=== PATIENT | male | born 1945 | race Caucasian/White ===

== ENCOUNTER 2017-09-17 21:05 | Inpatient (IN) | payer MEDICARE ==
--- NOTE | 2017-09-17 21:28 | ED ---
Chest Pain HPI - General Stated Complaint: Chest Pain Time Seen by Provider: 09/17/17 21:09 - History of Present Illness Initial Comments: 71 years old male had a stress test on recently and according to him it was positive and he was today sitting at the computer and all of a sudden he got short winded him down got tachycardic he noticed palpitation he said his heart was pounding and he noticed some tingling in his arms he denies any weakness of the arms or the forearms and hands and denies any weakness rate No sinus symptoms of TIA or CVA at this point - Related Data Home Medications Medication Instructions Recorded Confirmed ALPRAZolam [Xanax] 0.25 mg PO BID 09/17/17 09/17/17 Aspirin EC [Ecotrin Low Dose] 81 mg PO DIRECTED 09/17/17 09/17/17 Benazepril HCl 10 mg PO DAILY 09/17/17 09/17/17 Celecoxib [CeleBREX] 200 mg PO DIRECTED 09/17/17 09/17/17 Cholecalciferol [Vitamin D3] 2,000 unit PO DAILY 09/17/17 09/17/17 Cyanocobalamin [Vitamin B-12] 500 mcg PO DAILY 09/17/17 09/17/17 Docusate [Colace] 100 mg PO TID 09/17/17 09/17/17 Famotidine [Pepcid AC] 10 mg PO DAILY 09/17/17 09/17/17 Ferrous Sulfate [Feosol] 325 mg PO DAILY 09/17/17 09/17/17 Fish Oil/Dha/Epa [Fish Oil 1,200 1 cap PO DIRECTED 09/17/17 09/17/17 mg Fish Oil] HYDROcodone/APAP 5-325MG [[place] 1 tab PO BID PRN 09/17/17 09/17/17 5-325] Magnesium Oxide [Mag-Ox] 250 mg PO DAILY 09/17/17 09/17/17 Metoprolol Tartrate [Lopressor] 50 mg PO BID 09/17/17 09/17/17 PARoxetine [Paxil] 20 mg PO DAILY 09/17/17 09/17/17 Rosuvastatin [Crestor] 20 mg PO DAILY 09/17/17 09/17/17 Zinc 50 mg PO DAILY 09/17/17 09/17/17 amLODIPine BESYLATE [Norvasc] 5 mg PO DAILY 09/17/17 09/17/17 guaiFENesin [Mucinex] 1,200 mg PO BID PRN 09/17/17 09/17/17 metFORMIN HCL 1,000 mg PO BID 09/17/17 09/17/17 Allergies Allergy/AdvReac Type Severity Reaction Status Date / Time No Known Allergies Allergy Verified 09/17/17 21:40 Review of Systems ROS Statement: Those systems with pertinent positive or pertinent negative responses have been documented in the HPI. ROS Other: All systems not noted in ROS Statement are negative. EKG Findings - EKG Comments: EKG Findings:: I am EKG is a normal sinus ventricular rate is 62 NJ interval is 174 QRS duration is 94 QT/QTc is 418/424 review of this EKG does not reveal any ST elevation or ST depression General Exam - General Exam Comments Initial Comments: General: The patient is awake and alert, in no distress, and does not appear acutely ill. Skin: Skin is warm and dry and no rashes or lesions are noted. Eye: Pupils are equal, round and reactive to light, extra-ocular movements are intact; there is normal conjunctiva bilaterally. Ears, nose, mouth and throat: There are moist mucous membranes and no oral lesions. Neck: The neck is supple, there is no tenderness or JVD. Cardiovascular: There is a regular rate and rhythm. No murmur, rub or gallop is appreciated. Respiratory: To auscultation bilateral, no wheezing no rhonchi no distress respiratory vidal noticed Gastrointestinal: Soft, non-distended, non-tender abdomen without masses or organomegaly noted. There is no rebound or guarding present. Bowel sounds are unremarkable. Back: There is no tenderness to palpation in the midline. There is no obvious deformity. Musculoskeletal: Normal ROM, no tenderness, There is no pedal edema. There is no calf tenderness or swelling. No cords were appreciated. Neurological: CN II-XII intact, Cranial nerves III through XII are intact. There are no obvious motor or sensory deficits. Coordination appears grossly intact. Speech is normal. Psychiatric: Cooperative, appropriate mood & affect, normal judgment. Course Vital Signs 09/17/17 09/17/17 09/17/17 21:21 22:23 23:24 Temperature 98 F Pulse Rate 64 60 59 L Respiratory 16 16 20 Rate Blood Pressure 157/80 156/85 147/75 O2 Sat by Pulse 99 97 96 Oximetry Plan reassessment noticed CBC, CMP, troponin, chest x-ray, INR within normal range considering patient had a positive stress test she be admitted observation for 3 sets of cardiac markers and consult consult cardiology - Reevaluation(s) Reevaluation #1: She will be admitted to Dr. Rodríguez with a cardiology consult 09/17/17 23:46 Disposition Clinical Impression: Palpitations, Shortness of breath Disposition: ADMITTED IP TO THIS HOSP Condition: Good Referrals: Chuy Romero MD [Primary Care Provider] - 1-2 days
[2017-09-17] MEDS ORDERED: SODIUM CHLORIDE 0.9% 1,000 ML IV STA (21:30)
[2017-09-17] MEDS ORDERED: NITROGLYCERIN OINT 1 INCH/GM PACKET TOPICAL STA (21:30)
[2017-09-17] MEDS ORDERED: ASPIRIN 81 MG PO STA (21:30)
[2017-09-17 21:54] LABS: Basophils % (A) 0 %; Eosinophils # (A) 0.2 k/uL (0-0.7); Eosinophils % (A) 3 %; HCT 44.7 % (39.0-53.0); HGB 14.4 gm/dL (13.0-17.5); Lymphocytes # (A) 1.7 k/uL (1.0-4.8); Lymphocytes % (A) 26 %; MCH 27.8 pg (25.0-35.0); MCHC 32.3 g/dL (31.0-37.0); MCV 85.9 fL (80.0-100.0); Mean Platelet Volume 7.8; Monocytes # (A) 0.6 k/uL (0-1.0); Monocytes % (A) 9 %; Neutrophils # (A) 3.7 k/uL (1.3-7.7); Neutrophils % (A) 58 %; Platelet Count 201 k/uL (150-450); RDW 14.6 % (11.5-15.5); WBC 6.4 k/uL (3.8-10.6)
[2017-09-17 22:02] LABS: INR 1.1 (<1.2); Partial Thromboplastin Time 24.5 sec (22.0-30.0); Prothrombin Time 10.3 sec (9.0-12.0)
[2017-09-17 22:03] LABS: ALT 32 U/L (21-72); AST 21 U/L (17-59); Albumin 4.8 g/dL (3.5-5.0); Alkaline Phosphatase 70 U/L (38-126); Anion Gap 9 mmol/L; Blood Urea Nitrogen 15 mg/dL (9-20); Calcium 9.5 mg/dL (8.4-10.2); Carbon Dioxide 27 mmol/L (22-30); Chloride 104 mmol/L (98-107); Glucose 94 mg/dL (74-99); Magnesium 1.8 mg/dL (1.6-2.3); Potassium 4.3 mmol/L (3.5-5.1); Sodium 140 mmol/L (137-145); Total Bilirubin 0.3 mg/dL (0.2-1.3); Total Protein 7.4 g/dL (6.3-8.2)
[2017-09-17 22:06] LABS: Creatine Kinase 38 U/L (55-170)
--- NOTE | 2017-09-17 22:16 | XR ---
EXAMINATION TYPE: XR chest 2V DATE OF EXAM: 09/17/2017 COMPARISON: NONE HISTORY: Chest pain TECHNIQUE: Frontal and lateral views of the chest are obtained. FINDINGS: There is no heart failure nor confluent pneumonic infiltrate. Costophrenic angles are lyn r. There are chest leads. IMPRESSION: No active cardiopulmonary disease.
[2017-09-17 22:19] LABS: Creatine Kinase MB 0.5 ng/mL (0.0-2.4); Troponin I <0.012 ng/mL (0.000-0.034)
[2017-09-17] MEDS ORDERED: NON-FORMULARY DRUG (Fish Oil/Dha/Epa [Fish Oil 1,200 Mg Fish Oil] 1 CAP) PO SCH (23:45)
[2017-09-17] MEDS ORDERED: NITROGLYCERIN SL TABS 0.4 MG TAB SUBLINGUAL PRN (23:53)
[2017-09-17] MEDS ORDERED: HYDROcodone/APAP 5-325MG 1 EACH TAB PO PRN (23:59)
[2017-09-17] MEDS ORDERED: guaiFENesin 600 MG TABLET.ER PO PRN (23:59)
[2017-09-18 03:47] LABS: Cholesterol 117 mg/dL (<200); HDL Cholesterol 32 mg/dL (40-60); LDL Cholesterol,Calculated 36 mg/dL (0-99); Triglycerides 247 mg/dL (<150)
[2017-09-18 03:50] LABS: Creatine Kinase 30 U/L (55-170)
[2017-09-18 04:03] LABS: Creatine Kinase MB 0.4 ng/mL (0.0-2.4); Troponin I <0.012 ng/mL (0.000-0.034)
[2017-09-18 05:58] LABS: Glucose,Whole Blood 100 mg/dL (75-99)
[2017-09-18] MEDS: CYANOCOBALAMIN 500 MCG TAB PO SCH (06:00)
[2017-09-18] MEDS ORDERED: ASPIRIN 325 MG TAB PO SCH (09:00)
[2017-09-18] MEDS ORDERED: LISINOPRIL 10 MG TAB PO SCH (09:00)
[2017-09-18] MEDS ORDERED: metFORMIN 500 MG TAB PO SCH (09:00)
--- NOTE | 2017-09-18 09:57 | P.CRDCN ---
History of Present Illness Consult date: 09/18/17 Requesting physician: Garland Rodríguez Consult reason: chest pain Chief complaint: Chest pain History of present illness: This is a pleasant 71-year-old gentleman with known history of hypertension, diabetes, hyperlipidemia, who recently underwent a stress test as an outpatient as preop evaluation for back surgery which she is scheduled to undergo on Thursday in [place]. Apparently his sons live in [place] and he lives here alone he is . Patient's primary care doctor is Dr. Birch, patient states that he had a stress test performed at [facility] earlier this week and just received a call that his stress test was positive in the inferior wall region. He presents to the hospital on this occasion with symptoms of palpitations. According to the patient, he was sitting at his computer when all of a sudden he became extremely flushed and diaphoretic, sat he was experiencing palpitations and felt his heart pounding hard, he also had bilateral arm tingling and numbness. EMS was called and the patient was brought to the hospital then for further evaluation. EKG on arrival here showed a normal sinus rhythm with nonspecific ST-T wave changes noted in aVR, subsequent EKG shows sinus bradycardia with no acute changes. Chest x-ray does not reveal any active cardiopulmonary disease. The pressure on arrival here 158 /80 with a heart rate in the 60s, 99% on room air. CBC normal, sodium 140, potassium 4.3, BUN 15, creatinine 0.7. Magnesium 1.8. Troponins negative 2. Cholesterol 117, triglycerides 247, LDL 36, HDL 32 .At the time of my examination this morning, patient is currently chest pain-free. Past Medical History Past Medical History: Diabetes Mellitus, Hyperlipidemia, Hypertension, Osteoarthritis (OA) History of Any Multi-Drug Resistant Organisms: None Reported Past Surgical History: Orthopedic Surgery Additional Past Surgical History / Comment(s): right shoulder 2009 Past Anesthesia/Blood Transfusion Reactions: No Reported Reaction Past Psychological History: Anxiety Smoking Status: Former smoker Past Alcohol Use History: Occasional Past Drug Use History: None Reported - Past Family History Father Family Medical History: Cancer Additional Family Medical History / Comment(s): father at 46 years old of cancer. Mother Family Medical History: COPD Additional Family Medical History / Comment(s): pacemaker Medications and Allergies Home Medications Medication Instructions Recorded Confirmed Type ALPRAZolam [Xanax] 0.25 mg PO BID 09/17/17 09/17/17 History Aspirin EC [Ecotrin Low Dose] 81 mg PO DIRECTED 09/17/17 09/17/17 History Benazepril HCl 10 mg PO DAILY 09/17/17 09/17/17 History Celecoxib [CeleBREX] 200 mg PO DIRECTED 09/17/17 09/17/17 History Cholecalciferol [Vitamin D3] 2,000 unit PO DAILY 09/17/17 09/17/17 History Cyanocobalamin [Vitamin B-12] 500 mcg PO DAILY 09/17/17 09/17/17 History Docusate [Colace] 100 mg PO TID 09/17/17 09/17/17 History Famotidine [Pepcid AC] 10 mg PO DAILY 09/17/17 09/17/17 History Ferrous Sulfate [Feosol] 325 mg PO DAILY 09/17/17 09/17/17 History Fish Oil/Dha/Epa [Fish Oil 1,200 1 cap PO DIRECTED 09/17/17 09/17/17 History mg Fish Oil] HYDROcodone/APAP 5-325MG [[place] 1 tab PO BID PRN 09/17/17 09/17/17 History 5-325] Magnesium Oxide [Mag-Ox] 250 mg PO DAILY 09/17/17 09/17/17 History Metoprolol Tartrate [Lopressor] 50 mg PO BID 09/17/17 09/17/17 History PARoxetine [Paxil] 20 mg PO DAILY 09/17/17 09/17/17 History Rosuvastatin [Crestor] 20 mg PO DAILY 09/17/17 09/17/17 History Zinc 50 mg PO DAILY 09/17/17 09/17/17 History amLODIPine BESYLATE [Norvasc] 5 mg PO DAILY 09/17/17 09/17/17 History guaiFENesin [Mucinex] 1,200 mg PO BID PRN 09/17/17 09/17/17 History metFORMIN HCL 1,000 mg PO BID 09/17/17 09/17/17 History Allergies Allergy/AdvReac Type Severity Reaction Status Date / Time No Known Allergies Allergy Verified 09/17/17 21:40 Physical Exam Vitals: Vital Signs Temp Pulse Pulse Resp BP BP Pulse Ox 09/18/17 08:00 97.1 F L 63 20 144/71 95 09/18/17 04:00 56 L 18 149/76 98 09/18/17 00:16 97.1 F L 16 164/89 97 09/17/17 23:24 98 F 59 L 20 147/75 96 09/17/17 22:23 60 16 156/85 97 09/17/17 21:21 64 16 157/80 99 Intake and Output 09/17/17 09/18/17 09/18/17 22:59 06:59 14:59 Other: Voiding Method Toilet Weight 102.058 kg 99.9 kg PHYSICAL EXAMINATION: GENERAL: 71-year-old gentleman in no acute distress at the time of my examination HEENT: Head is atraumatic, normocephalic. Pupils equal, round. Sclera anicteric. Conjunctiva are clear. Mucous membranes of the mouth are moist. Neck is supple. There is no elevated jugular venous pressure. No Carotid bruit is heard. HEART EXAMINATION: Heart S1, S2 normal. No murmur or gallop heard. CHEST EXAMINATION: Lungs are clear to auscultation and precussion. No chest wall tenderness is noted on palpation or with deep breathing. ABDOMEN: Soft, nontender. Bowel sounds are heard. No organomegaly noted. EXTREMITIES: 2+ peripheral pulses with no evidence of peripheral edema and no calf tenderness noted. NEUROLOGIC patient is awake, alert and oriented X3. . Results 09/17/17 21:44 09/17/17 21:44 Cardiac Enzymes 09/17/17 09/17/17 09/18/17 Range/Units 21:44 21:44 03:27 AST 21 (17-59) U/L CK-MB (CK-2) 0.5 0.4 (0.0-2.4) ng/mL Troponin I <0.012 <0.012 (0.000-0.034) ng/mL Coagulation 09/17/17 Range/Units 21:44 PT 10.3 (9.0-12.0) sec APTT 24.5 (22.0-30.0) sec Lipids 09/18/17 Range/Units 03:27 Triglycerides 247 H (<150) mg/dL Cholesterol 117 (<200) mg/dL HDL Cholesterol 32 L (40-60) mg/dL CBC 08/02/18 Range/Units 21:44 WBC 6.4 (3.8-10.6) k/uL RBC 5.20 (4.30-5.90) m/uL Hgb 14.4 (13.0-17.5) gm/dL Hct 44.7 (39.0-53.0) % Plt Count 201 (150-450) k/uL Comprehensive Metabolic Panel 09/17/17 Range/Units 21:44 Sodium 140 (137-145) mmol/L Potassium 4.3 (3.5-5.1) mmol/L Chloride 104 (98-107) mmol/L Carbon Dioxide 27 (22-30) mmol/L BUN 15 (9-20) mg/dL Creatinine 0.71 (0.66-1.25) mg/dL Glucose 94 (74-99) mg/dL Calcium 9.5 (8.4-10.2) mg/dL AST 21 (17-59) U/L ALT 32 (21-72) U/L Alkaline Phosphatase 70 (38-126) U/L Total Protein 7.4 (6.3-8.2) g/dL Albumin 4.8 (3.5-5.0) g/dL Current Medications Generic Name Dose Route Start Last Admin Trade Name Freq PRN Reason Stop Dose Admin Hydrocodone Bitart/Acetaminophen 1 each 09/17/17 23:59 09/18/17 03:09 [place] 5-325 PO 1 each BID PRN Administration Pain Alprazolam 0.25 mg 09/18/17 09:00 Xanax PO BID [facility] Amlodipine Besylate 5 mg 09/18/17 09:00 Norvasc PO DAILY [facility] Aspirin 325 mg 09/18/17 09:00 Aspirin PO DAILY [facility] Aspirin 81 mg 09/18/17 09:00 Aspirin PO DAILY [facility] Atorvastatin Calcium 40 mg 09/18/17 09:00 Lipitor PO DAILY [facility] Cholecalciferol 2,000 unit 09/18/17 09:00 Vitamin D3 PO DAILY [facility] Cyanocobalamin 500 mcg 09/18/17 07:30 09/18/17 06:00 Vitamin B-12 PO Not Given W/BRKFST [facility] Docusate Sodium 100 mg 09/18/17 09:00 Colace PO TID [facility] Famotidine 20 mg 09/18/17 09:00 Pepcid PO DAILY [facility] Ferrous Sulfate 325 mg 09/18/17 09:00 Feosol PO DAILY [facility] Guaifenesin 1,200 mg 09/17/17 23:59 Mucinex PO BID PRN Cough Lisinopril 10 mg 09/18/17 09:00 Zestril PO DAILY [facility] Magnesium Oxide 200 mg 09/18/17 09:00 Mag-Ox PO DAILY [facility] Metformin HCl 1,000 mg 09/18/17 09:00 Glucophage PO BID [facility] Metoprolol Tartrate 50 mg 09/18/17 09:00 Lopressor PO BID [facility] Nitroglycerin 0.4 mg 09/17/17 23:53 Nitrostat SUBLINGUAL Q5M PRN Chest Pain Paroxetine HCl 20 mg 09/18/17 09:00 Paxil PO DAILY [facility] Zinc Sulfate 220 mg 09/18/17 09:00 Orazinc PO DAILY [facility] Intake and Output 09/17/17 09/18/17 09/18/17 22:59 06:59 14:59 Other: Voiding Method Toilet Weight 102.058 kg 99.9 kg 09/17/17 21:44 09/17/17 21:44 EKG Interpretations (text) EKG shows normal sinus rhythm, no acute changes noted. Assessment and Plan Plan: Assessment and plan #1 symptoms of flushing, diaphoresis and palpitations, 2. EKG shows normal sinus rhythm with no acute changes. Patient states he had a recent stress test earlier this week, he was called and told that the stress test was positive for ischemia in the inferior region. #2 hypertension #3 hyperlipidemia #4 diabetes #5 anticipated back surgery Plan Will obtain an echocardiogram with Doppler study. We will also obtain a third troponin value. We will obtain results of patient's recent stress test which she had performed at [facility] earlier this week. Decrease aspirin to 81 mg daily, continue statin, JAY inhibitor, beta allyn. If the patient in fact has a positive stress test, he will require to undergo cardiac catheterization. The risks and benefits were explained to the patient in detail. Further recommendations will be based on these findings and the patient 's clinical course. DNP note has been reviewed, I agree with a documented findings and plan of care. Patient was seen and examined.
[2017-09-18 10:21] LABS: Creatine Kinase 38 U/L (55-170)
[2017-09-18 10:35] LABS: Creatine Kinase MB 0.5 ng/mL (0.0-2.4); Troponin I <0.012 ng/mL (0.000-0.034)
[2017-09-18] MEDS ORDERED: SODIUM CHLORIDE 0.9% 1,000 ML in EMPTY BAG 1 BAG IV ONE (11:29)
[2017-09-18] MEDS ORDERED: ALPRAZolam 0.25 MG TAB PO PRN (11:29)
[2017-09-18] MEDS ORDERED: ALPRAZolam 0.5 MG TAB PO PRN (11:29)
[2017-09-18] MEDS ORDERED: ASPIRIN 325 MG TAB PO STA (11:29)
[2017-09-18] MEDS ORDERED: ATORVASTATIN 80 MG TAB PO STA (11:29)
[2017-09-18] MEDS ORDERED: NITROGLYCERIN SL TABS 0.4 MG TAB SUBLINGUAL PRN ×2 (11:29→14:45)
[2017-09-18] MEDS: METOPROLOL TARTRATE 50 MG TAB PO SCH ×2 (11:38→20:49)
[2017-09-18] MEDS: PARoxetine 20 MG TAB PO SCH (11:38)
[2017-09-18] MEDS: ZINC SULFATE 220 MG CAP PO SCH (11:38)
[2017-09-18] MEDS: FAMOTIDINE 20 MG TAB PO SCH (11:39)
[2017-09-18] MEDS: amLODIPine 5 MG TAB PO SCH (11:39)
[2017-09-18] MEDS: ASPIRIN 81 MG PO SCH (11:39)
[2017-09-18] MEDS: MAGNESIUM OXIDE 400 MG TAB PO SCH (11:39)
[2017-09-18] MEDS: DOCUSATE 100 MG CAP PO SCH ×3 (11:40→20:49)
[2017-09-18] MEDS: ATORVASTATIN 40 MG TAB PO SCH (11:40)
[2017-09-18] MEDS: ALPRAZolam 0.25 MG TAB PO SCH ×2 (11:43→20:49)
[2017-09-18 11:51] LABS: Glucose,Whole Blood 120 mg/dL (75-99)
--- NOTE | 2017-09-18 12:39 | ECHOF ---
Referral Reason:chest pain MEASUREMENTS -------- HEIGHT: 172.7 cm WEIGHT: 99.8 kg BP: 149/71 IVSd: 1.4 cm (0.6 - 1.1) LVIDd: 3.7 cm (3.9 - 5.3) LVPWd: 1.4 cm (0.6 - 1.1) IVSs: 1.6 cm LVIDs: 2.4 cm LVPWs: 1.6 cm LAESV Index (A-L): 47.50 ml/m Ao Diam: 3.2 cm (2.0 - 3.7) AV Cusp: 1.8 cm (1.5 - 2.6) LA Diam: 1.7 cm (2.7 - 3.8) TAPSE: 3.9 cm MV E Mike: 0.75 m/s MV DecT: 334 ms MV A Mike: 0.69 m/s MV E/A Ratio: 1.08 RAP: 5.00 mmHg RVSP: 12.98 mmHg FINDINGS -------- Sinus rhythm. This was a technically adequate study. The left ventricular size is normal. There is mild concentric left ventricular hypertrophy. Overa ll left ventricular systolic function is normal with, an EF between 55 - 60 %. The right ventricle is normal in size and function. LA is severely dilated >40 ml/m2 RA appears enlarged. There is mild aortic valve sclerosis. There is mild aortic regurgitation. There is no evidence of aortic stenosis. The mitral valve leaflets are mildly thickened. There is trace to mild mitral regurgitation. Trace tricuspid regurgitation present. Right ventricular systolic pressure is normal at < 35 mmHg. There is no evidence of pulmonary hypertension. The pulmonic valve was not well visualized. The aortic root size is normal. Normal inferior vena cava with normal inspiratory collapse consistent with estimated right atrial pre ssure of 5 mmHg. There is no pericardial effusion. CONCLUSIONS -------- 1. Sinus rhythm. 2. This was a technically adequate study. 3. The left ventricular size is normal. 4. There is mild concentric left ventricular hypertrophy. 5. Overall left ventricular systolic function is normal with, an EF between 55 - 60 %. 6. LA is severely dilated >40 ml/m2 7. RA appears enlarged. 8. There is mild aortic valve sclerosis. 9. There is mild aortic regurgitation. 10. The mitral valve leaflets are mildly thickened. 11. There is trace to mild mitral regurgitation. 12. Trace tricuspid regurgitation present. 13. Right ventricular systolic pressure is normal at < 35 mmHg. 14. There is no evidence of pulmonary hypertension. 15. The pulmonic valve was not well visualized. 16. The aortic root size is normal. 17. There is no pericardial effusion. INS[employer]ANCE [employer]ATIONS REP: Bill Reynolds RDCS
[2017-09-18] MEDS ORDERED: IV FLUID CONTINUATION 200 ML IV ONE (13:33)
[2017-09-18] MEDS ORDERED: fentaNYL (PF) 50 MCG/ML 2 ML AMP IV ONE (13:47)
[2017-09-18] MEDS ORDERED: diphenhydrAMINE 50 MG/ML 1 ML VIAL IVP ONE (13:47)
[2017-09-18] MEDS ORDERED: LIDOCAINE 2%-EPI 1:100,000 20 ML VIAL SQ ONE (13:49)
[2017-09-18] MEDS ORDERED: VERAPAMIL SYRINGE (5 MG/10 ML) INTRAARTER ONE (13:53)
[2017-09-18] MEDS ORDERED: LIDOCAINE 1% INJ 10MG/ML (20 ML MDV) SQ ONE (14:07)
[2017-09-18] MEDS ORDERED: NITROGLYCERIN 1000MCG/10ML SYRINGE INTRACORON ONE (14:18)
[2017-09-18] MEDS ORDERED: BIVALIRUDIN BOLUS 250 MG/50 ML IV ONE (14:18)
[2017-09-18] MEDS ORDERED: PRASUGREL 10 MG TAB PO ONE (14:20)
[2017-09-18] MEDS ORDERED: BIVALIRUDIN 250 MG in SODIUM CHLORIDE 0.9% 50 ML IV ONE (14:22)
[2017-09-18] MEDS ORDERED: IOPAMIDOL-370 125ML BTL INJ ONE (14:27)
[2017-09-18] MEDS ORDERED: IOPAMIDOL-370 100ML BTL INJ ONE (14:37)
[2017-09-18] MEDS ORDERED: MAG HYDROX/AL HYDROX/SIMETH 30 ML CUP PO PRN (14:45)
[2017-09-18] MEDS ORDERED: RX INFO: IV CONTRAST WAS GIVEN 1 EACH MISC MISCELLANE PRN (14:45)
[2017-09-18] MEDS ORDERED: SODIUM CHLORIDE 0.9% 1,000 ML IV SCH (14:45)
[2017-09-18] MEDS ORDERED: ATROPINE SULFATE 0.1 MG/ML 10ML SYRINGE IV PRN (14:45)
[2017-09-18] MEDS ORDERED: ZOLPIDEM 5 MG TAB PO PRN (14:45)
--- NOTE | 2017-09-18 15:26 | PTCA ---
PERCUTANEOUSTRANS CORORONARY ANGIOGRAPHY Mr. Gomez is a 71-year-old male who presented with symptoms of chest discomfort, underwent cardiac catheterization, was found to have significant obstructive disease involving the proximal LAD. In view of that, recommendation made regarding angioplasty and stenting. The procedures, risks and complications were discussed with the patient who is in full understanding and agreement. PROCEDURE: A 6-[place] FR4 guiding catheter introduced into the system. After cannulating the left main, a 0.014 advanced medium weight J-wire was advanced across the lesion and positioned distally. Then a 3.0 x 23 mm Xience Alpine stent was deployed, postdilated at 12 atmospheres. After the last inflation, after appropriate wait, the balloon and the guidewire were withdrawn back in the guiding catheter. Images were obtained and repeated. Those images reveal stable successful stenting. At that point, the guiding catheter, the balloon and the guidewire were removed. A left ventriculogram was performed. Following that, catheter and sheaths were removed. Hemostasis was obtained with deployment of an Angio-Seal in the right femoral artery and TR band in the right radial artery. Of note, the patient received Angiomax per protocol as well as oral loading dose of Effient. RESULTS: Successful stenting of the proximal LAD with reduction of stenosis from 80% to 0%. RECOMMENDATION: Patient will be continued on aspirin, Effient, beta blockers and statin. The importance of dual antiplatelet treatment was discussed with the patient who is in full understanding and agreement. Duration of procedure is 51 minutes. MMODL / IJN: [id number] /
--- NOTE | 2017-09-18 15:27 | PN ---
Progress Note - Text This is an addendum to the dictated cardiology consultation. The patient presents with symptoms of diaphoresis, numbness in the hands, dyspnea while at rest. He has been evaluated for back discomfort and has underwent PCI on September 16 that showed inferior wall ischemia with ejection fraction of 43%. The patient has no history of cardiac disease, no prior myocardial infarction, congestive heart failure. He is usually active physically but limited by his back. His cardiac enzymes shows no evidence of fluid overload and he is in sinus mechanism. His EKG shows no acute changes and his troponins are negative. Patient presents with symptoms of unclear etiology with an abnormal MPI. I have recommended to proceed with coronary angiography to assess his status and guide his treatment. The risks and the complications were discussed with the patient who is in full understanding and agreement. Thank you for this consult we will follow with you. PARAS
--- NOTE | 2017-09-18 15:32 | CC ---
CARDIAC CATHETERIZATION REPORT Mr. Gomez is a 71-year-old male with known history of hypertension, hyperlipidemia, diabetes mellitus, who recently underwent a myocardial perfusion imaging that revealed evidence of inducible ischemia. The test was done as an outpatient. He presented to the hospital with symptoms of dyspnea, dizziness and discomfort. In view of that, recommendation made regarding cardiac catheterization. The procedures, risks and complication were discussed with the patient who is in full understanding and agreement. PROCEDURE: Patient was brought to [employer] in a fasting semi-sedated state after receiving fentanyl and Benadryl and achieving moderate conscious sedated state. Using Xylocaine anesthesia and Seldinger technique, a 6-Brazilian sheath was introduced in the right radial artery. Attempts to cannulate the right coronary artery using a 5-Brazilian 3.5 bend right Julianne and a 6 Brazilian Ariel catheter were unsuccessful because of a 360 loop in the right subclavian. At that time, using Xylocaine anesthesia and Seldinger technique, a 6-Brazilian sheath was introduced in the right femoral artery. Selective right and left angiography performed using 6-Brazilian 4 bend right and left Julianne catheter, multiple views of the coronary artery including hemiaxial views were obtained. Following that, angioplasty and stenting was performed. Following that, left ventriculogram was performed using a 6-Brazilian tight pigtail catheter. At the end of the procedure, catheter and sheath were removed. Hemostasis was obtained with deployment of an Angio-Seal in the right femoral artery and TR band in the right radial artery. Of note, patient received 5000 units of intravenous heparin as well as intra- arterial verapamil. FINDINGS: 1. LEFT MAIN: This is a short-sized vessel, bifurcating into left circumflex, left anterior descending artery. Left main coronary artery has no evidence of high- grade stenosis. 2. LEFT ANTERIOR DESCENDING ARTERY: This is a large-sized vessel, reaching toward the apex with a wraparound apex segment, giving rise to a moderately sized diagonal branch. The vessel is calcified proximally, has 2 tandem lesions proximally, up to 80%. The rest of the vessel has no high-grade stenosis. 3. LEFT CIRCUMFLEX: This is a non-dominant vessel, large in caliber giving rise to a large obtuse marginal branch. The left circumflex as well as its branches have no evidence of obstructive disease. 4. RIGHT CORONARY ARTERY: This is a large dominant vessel, bifurcating into PDA and posterolateral segment branches. The right coronary artery has mild intimal disease in the mid segment without any evidence of high-grade stenosis. 5. LEFT VENTRICULOGRAM: Left ventriculogram is performed in 30-degree CORTÉS view and revealed normal size and systolic function, ejection fraction 60%. There was no significant mitral regurgitation. 6. HEMODYNAMICS: There was no gradient across the aortic valve. The left ventricular end-diastolic pressure was 20 mmHg. CONCLUSION: 1. Significant stenosis involving the proximal LAD. 2. Mild disease in the right coronary artery. 3. Normal left ventricular size and systolic function. RECOMMENDATION: In view of finding anatomy, recommend proceeding with angioplasty and stenting of the LAD. The procedures, risks and complication were discussed with the patient who is in full understanding and agreement. MMODL / IJN: [id number] /
[2017-09-18 16:54] LABS: Glucose,Whole Blood 156 mg/dL (75-99)
[2017-09-18] MEDS: FERROUS SULFATE 325 MG TAB PO SCH (17:20)
[2017-09-18] MEDS: CHOLECALCIFEROL 1,000 UNIT TAB PO SCH (17:20)
--- NOTE | 2017-09-18 18:38 | HP ---
HISTORY AND PHYSICAL DATE OF ADMISSION: 09/17/2017. DATE OF SERVICE: 09/18/2017 PRESENT COMPLAINT: Chest pressure. HISTORY OF PRESENTING COMPLAINT: This is a very pleasant 71-year-old patient of Dr. Romero. Chronic stable medical conditions include diabetes, hypertension, hyperlipidemia, osteoarthritis of the lower back. The patient is pending surgery on the lower back. In the process, patient did undergo a stress test 2 days ago that showed some inferior wall ischemia done at [facility]. The patient presented with a feeling of shortness of breath, heart racing, pressure, tingling in the arms and a clammy sensation going on for at least over an hour, did not get relieved on his own. Given the positive stress test, patient decided to come to the ER, was admitted for the same. Seen by Cardiology earlier today and decision was made to proceed for a cardiac catheterization. Later this afternoon, the patient had a stent to the LAD done. REVIEW OF SYSTEMS: CONSTITUTIONAL: Tired. HEENT: None. RESPIRATORY: As above. CARDIOVASCULAR: As above. GASTROINTESTINAL: None. GENITOURINARY: None. MUSCULOSKELETAL: Lower back pain. DERMATOLOGICAL: None. HEMATOLOGIC: None. LYMPHATIC: None. PSYCHIATRY: None. NEUROLOGICAL: None. MUSCULOSKELETAL: Lower back pain. PAST MEDICAL HISTORY: Diabetes, hypertension, hyperlipidemia, lower back osteoarthritis. PAST SURGICAL HISTORY: Orthopedic surgery, right shoulder surgery. SOCIAL HISTORY: Lives by himself. The patient smoked for about 8 years, stopped in 1975. Patient does part-time work. FAMILY HISTORY: Father of cancer at age of 46. HOME MEDICATIONS: 1. Mucinex 1200 mg p.o. b.i.d. p.r.n. 2. Magnesium oxide 250 mg p.o. daily. 3. [place] 5 one tablet p.o. b.i.d. p.r.n. 4. Fish oil 1 capsule p.o. as directed. 5. Celebrex 200 mg p.o. daily. 6. Aspirin 81 mg a day. 7. Zinc 50 mg a day. 8. Iron 325 p.o. daily. 9. Vitamin B12 500 mcg p.o. daily. 10.Vitamin D3 2000 units p.o. daily. 11.Pepcid AC 10 mg p.o. daily. 12.Colace 100 mg p.o. t.i.d. 13.Crestor 20 mg p.o. daily. 14.Metformin 1000 mg p.o. b.i.d. 15.Benazepril 10 mg p.o. daily. 16.Norvasc 5 mg p.o. daily. 17.Paxil 20 mg p.o. daily. 18.Lopressor 50 mg b.i.d. 19.Xanax 0.25 p.o. b.i.d. ALLERGIES: None. EXAMINATION: VITAL SIGNS: On presentation, temperature 98, pulse 59, respirations 20, blood pressure 147/75, pulse ox 96% on 2L. GENERAL APPEARANCE: Well-built, BMI 32.5, lying in bed, comfortable. EYES: Pupils equal. Conjunctivae normal. HEENT: External nose and ears normal. Oral cavity normal. NECK: JVD not raised. Mass not palpable. RESPIRATORY: Effort normal. Lungs are clear. CARDIOVASCULAR: First and second sounds normal. No edema. ABDOMEN: Soft, nontender. Liver and spleen not palpable. LYMPHATIC: No lymph node palpable in neck or axillae. PSYCHIATRY: Alert and oriented x3. Mood and affect normal. NEUROLOGICAL: Pupils equal. Cranial nerve intact. Power and sensation grossly intact. INVESTIGATIONS: White count 6.4, hemoglobin 14.4, potassium 4.3. Troponin x3 negative. LDL 36. Chest x-ray film interpreted by me shows mild cardiomegaly. Lung burch to be clear. EKG tracing interpreted by me shows normal sinus rhythm. 2D echocardiogram shows LV systolic function, EF 55%-60%. ASSESSMENT: 1. Unstable angina in a patient with known positive stress test done 2 days ago with cardiac risk factors being diabetes, hypertension, hyperlipidemia. 2. Coronary artery disease as per cardiac catheterization with now angioplasty, stent to the left anterior descending. 3. Diabetes mellitus type 2 on oral hypoglycemic. 4. Hypertension. 5. Hyperlipidemia. 6. Osteoarthritis of the lower back, pending surgery. 7. Obesity; BMI 33.5. PLAN: The patient is on aspirin, Lipitor, Effient. Other medications to continue. Accu- Cheks will be followed. Care was discussed with the patient. The patient was seen by Dr. Paul from Cardiology. MMODL / IJN: [id number] /
[2017-09-18] MEDS ORDERED: ACETAMINOPHEN TAB 325 MG TAB PO PRN (20:44)
[2017-09-18] MEDS: LISINOPRIL 10 MG TAB PO SCH (20:50)
[2017-09-18 20:57] LABS: Glucose,Whole Blood 130 mg/dL (75-99)
[2017-09-19 06:14] LABS: Glucose,Whole Blood 109 mg/dL (75-99)
[2017-09-19] MEDS: CYANOCOBALAMIN 500 MCG TAB PO SCH (06:32)
[2017-09-19 06:40] LABS: Anion Gap 10 mmol/L; Blood Urea Nitrogen 11 mg/dL (9-20); Calcium 9.1 mg/dL (8.4-10.2); Carbon Dioxide 24 mmol/L (22-30); Chloride 107 mmol/L (98-107); Glucose 104 mg/dL (74-99); Sodium 141 mmol/L (137-145)
[2017-09-19] MEDS: FAMOTIDINE 20 MG TAB PO SCH (08:12)
[2017-09-19] MEDS: CHOLECALCIFEROL 1,000 UNIT TAB PO SCH (08:12)
[2017-09-19] MEDS: ZINC SULFATE 220 MG CAP PO SCH (08:12)
[2017-09-19] MEDS: METOPROLOL TARTRATE 50 MG TAB PO SCH (08:12)
[2017-09-19] MEDS: MAGNESIUM OXIDE 400 MG TAB PO SCH (08:12)
[2017-09-19] MEDS: LISINOPRIL 10 MG TAB PO SCH (08:12)
[2017-09-19] MEDS: PARoxetine 20 MG TAB PO SCH (08:12)
[2017-09-19] MEDS: ATORVASTATIN 40 MG TAB PO SCH (08:13)
[2017-09-19] MEDS: ALPRAZolam 0.25 MG TAB PO SCH (08:13)
[2017-09-19] MEDS: ASPIRIN 81 MG PO SCH (08:13)
[2017-09-19] MEDS: FERROUS SULFATE 325 MG TAB PO SCH (08:13)
[2017-09-19] MEDS: amLODIPine 5 MG TAB PO SCH (08:13)
[2017-09-19] MEDS: DOCUSATE 100 MG CAP PO SCH (08:13)
[2017-09-19 09:18] VITALS: RESP 18
[2017-09-19 11:49] VITALS: BP 137/78; PULSE 58; TEMP 98
[2017-09-19 11:53] LABS: Glucose,Whole Blood 96 mg/dL (75-99)
--- NOTE | 2017-09-19 14:19 | P.PN ---
Subjective Progress Note Date: 09/19/17 This is a pleasant 71-year-old gentleman with known history of hypertension, diabetes, hyperlipidemia, who recently underwent a stress test as an outpatient as preop evaluation for back surgery which she is scheduled to undergo on Thursday in [place]. Apparently his sons live in [place] and he lives here alone he is . Patient's primary care doctor is Dr. Birch, patient states that he had a stress test performed at [facility] earlier this week and just received a call that his stress test was positive in the inferior wall region. He presents to the hospital on this occasion with symptoms of palpitations. According to the patient, he was sitting at his computer when all of a sudden he became extremely flushed and diaphoretic, sat he was experiencing palpitations and felt his heart pounding hard, he also had bilateral arm tingling and numbness. EMS was called and the patient was brought to the hospital then for further evaluation. EKG on arrival here showed a normal sinus rhythm with nonspecific ST-T wave changes noted in aVR, subsequent EKG shows sinus bradycardia with no acute changes. Chest x-ray does not reveal any active cardiopulmonary disease. The pressure on arrival here 158 /80 with a heart rate in the 60s, 99% on room air. CBC normal, sodium 140, potassium 4.3, BUN 15, creatinine 0.7. Magnesium 1.8. Troponins negative 2. Cholesterol 117, triglycerides 247, LDL 36, HDL 32 .At the time of my examination this morning, patient is currently chest pain-free. 09/19/2017 Patient was taken to the cardiac catheterization lab yesterday where he underwent angioplasty and stenting of the proximal LAD. Patient was seen and examined this morning, denies any chest pain or difficulty in breathing. Hemodynamically stable. EKG shows normal sinus rhythm with no acute changes from post-PCI. Lab data has been reviewed. Objective - Vital Signs Vital signs: Vital Signs Temp 98.0 F 09/19/17 11:48 Pulse 58 L 09/19/17 11:48 Resp 18 09/19/17 11:48 BP 137/78 09/19/17 11:48 Pulse Ox 95 09/19/17 11:48 Intake & Output 09/18/17 09/19/17 09/19/17 18:59 06:59 18:59 Intake Total 844 600 480 Output Total 500 775 Balance 344 -175 480 Weight 99.6 kg Intake: IV 126 Intake, IV Titration 600 Amount Sodium Chloride 0.9% 1, 600 000 ml @ 100 mls/hr IV . Q10H EDITH Rx#:[id number] Oral 118 600 480 Output: Urine 500 775 Other: Voiding Method Urinal - Exam PHYSICAL EXAMINATION: GENERAL: 71-year-old gentleman in no acute distress at the time of my examination HEENT: Head is atraumatic, normocephalic. Pupils equal, round. Sclera anicteric. Conjunctiva are clear. Mucous membranes of the mouth are moist. Neck is supple. There is no elevated jugular venous pressure.] bruit is heard. HEART EXAMINATION: Heart S1, S2 normal. No murmur or gallop heard. CHEST EXAMINATION: Lungs are clear to auscultation and precussion. No chest wall tenderness is noted on palpation or with deep breathing. ABDOMEN: Soft, nontender. Bowel sounds are heard. No organomegaly noted. EXTREMITIES: 2+ peripheral pulses with no evidence of peripheral edema and no calf tenderness noted. Radial site clean and dry, good distal pulse, mild amount of ecchymosis noted. NEUROLOGIC patient is awake, alert and oriented ?-3. . - Labs CBC & Chem 7: 09/17/17 21:44 09/19/17 05:54 Labs: Abnormal Lab Results - Last 24 Hours (Table) 09/18/17 09/18/17 09/19/17 Range/Units 16:50 20:56 05:54 Glucose 104 H (74-99) mg/dL POC Glucose (mg/dL) 156 H 130 H (75-99) mg/dL 09/19/17 Range/Units 06:10 Glucose (74-99) mg/dL POC Glucose (mg/dL) 109 H (75-99) mg/dL Assessment and Plan Plan: Assessment and plan #1 symptoms of flushing, diaphoresis and palpitations, 2. EKG shows normal sinus rhythm with no acute changes. Patient states he had a recent stress test earlier this week, he was called and told that the stress test was positive for ischemia in the inferior region. #2 hypertension #3 hyperlipidemia #4 diabetes #5 anticipated back surgery Plan Patient underwent angioplasty with stenting of the LAD. He may be able to be discharged home today from cardiology's perspective. Follow-up appointment will be made with Dr. Paul next week. Patient will be discharged home on Norvasc 5 mg daily, Ecotrin 81 mg daily, Lipitor 40 mg daily, Effient 10 mg daily, metoprolol 50 mg daily, lisinopril 10 mg by mouth twice a day and sublingual nitroglycerin as needed for chest pain. DNP note has been reviewed, I agree with a documented findings and plan of care. Patient was seen and examined.
[2017-09-19] MEDS ORDERED: PRASUGREL 10 MG TAB PO SCH (14:46)
[2017-09-19 15:08] VITALS: BMI 33.3
--- NOTE | 2017-09-20 07:25 | DS ---
DISCHARGE SUMMARY DATE OF ADMISSION: 09/17/17. DATE OF DISCHARGE: 09/19/17. FINAL DIAGNOSES: 1. Coronary artery disease presenting with unstable angina with risk factors including diabetes, hypertension, hyperlipidemia. 2. Diabetes mellitus type 2 on oral hypoglycemic. 3. Essential hypertension. 4. Hyperlipidemia. 5. Osteoarthritis of the lower back, pending surgery. 6. Obesity, BMI 33.5. HOSPITAL COURSE: The patient is having cardiac presentation, did have a stress test 2 days ago, presented again with cardiac sounding presentation. The patient underwent cardiac catheterization and another successful angioplasty and stenting of the proximal LAD. 2D echo showed preserved LV function and LDL was 36. On examination today, pulse 58, respiration 18, blood pressure 137/78, pulse ox 95% on room air. LUNGS: Fair entry. CARDIOVASCULAR: 1st and 2nd sounds normal. Care was discussed in detail with the patient. Questions were answered. Discussion and discharge planning more than 35 minutes. DISCHARGE MEDICATIONS: 1. Xanax 0.25 p.o. b.i.d. 2. Benazepril 10 mg p.o. daily. 3. Vitamin D3 2000 units p.o. daily. 4. Vitamin B12 500 mcg a day. 5. Pepcid 10 mg p.o. daily. 6. Iron 325 p.o. daily. 7. Fish oil 1200 mg as directed. 8. [place] 5 one tablet b.i.d. p.r.n. 9. Magnesium oxide 250 mg p.o. daily. 10.Lopressor 50 mg p.o. b.i.d. 11.Paxil 20 mg p.o. daily. 12.Crestor 20 mg p.o. daily. 13.Zinc 50 mg p.o. daily. 14.Norvasc 5 mg p.o. daily. 15.Mucinex 1200 mg p.o. b.i.d. p.r.n. 16.Metformin 1000 mg p.o. b.i.d. 17.Tylenol 650 mg q.6h p.r.n. 18.Aspirin 81 mg a day. 19.Nitrostat 0.4 sublingual q.5 p.r.n. 20.Effient 10 mg p.o. daily. 21.Senokot S 1 tablet p.o. daily. FOLLOWUP: Follow with Dr. Paul in 1 week. Follow with Chuy Romero in [place] on 09/30/17. ADDITIONAL NOTE: The patient was told that he needs to follow Dr. Paul and then he will decide about how far this back surgery needs to be postponed given the acute intervention. MMMATL / IJN: [id number] /
[2017-09-20] MEDS ORDERED: metFORMIN 500 MG TAB PO SCH (21:00)
== END 2017-09-19 15:39 | disposition home or self-care (01) | DRG 247 ==
LOC: EC 21:05 → 6SEL 23:53 → OBSVTOIN 09-18 15:56
PROVIDERS: ADMIT Hospitalist; ATTEND Hospitalist
PROC: B2111ZZ Fluoroscopy of Multiple Coronary Arteries using Low Osmolar Contrast (ICD-10-PCS; 2017-09-18)
PROC: B2151ZZ Fluoroscopy of Left Heart using Low Osmolar Contrast (ICD-10-PCS; 2017-09-18)
PROC: 4A023N7 Measurement of Cardiac Sampling and Pressure, Left Heart, Percutaneous Approach (ICD-10-PCS; principal; 2017-09-18 13:22)
PROC: 027034Z Dilation of Coronary Artery, One Artery with Drug-eluting Intraluminal Device, Percutaneous Approach (ICD-10-PCS; 2017-09-18 13:22)
DX: I25.110 Atherosclerotic heart disease of native coronary artery with unstable angina pectoris (principal); E11.9 Type 2 diabetes mellitus without complications; E66.9 Obesity, unspecified; E78.5 Hyperlipidemia, unspecified; I10 Essential (primary) hypertension; M47.9 Spondylosis, unspecified; Z68.33 Body mass index [BMI] 33.0-33.9, adult; Z79.82 Long term (current) use of aspirin; Z79.84 Long term (current) use of oral hypoglycemic drugs; Z79.899 Other long term (current) drug therapy; Z80.9 Family history of malignant neoplasm, unspecified; Z82.5 Family history of asthma and other chronic lower respiratory diseases; Z87.891 Personal history of nicotine dependence; Z60.2 Problems related to living alone; F41.9 Anxiety disorder, unspecified
CPT/HCPCS: 36415; 71046; 80048; 80053; 80061; 82550; 82553; 83735; 84484; 85025; 85610; 85730; 93005; 93306; 93458; 94760; 96360; 96361; 99285